=== PATIENT | female | born 1935 | race Two or more races ===

== ENCOUNTER 2024-03-25 16:49 | Inpatient (IN) | payer MEDICAID, MEDICARE ==
[~2024-03-25] VITALS: Ht 162.6 cm; Wt 62.1 kg
[2024-03-25] MEDS: VANCOMYCIN 1 GM in IV D5W 250 ML IV ONE (17:30)
[2024-03-25] MEDS: ACETAMINOPHEN ES 500 MG TABLET PO ONE (17:30)
[2024-03-25] MEDS: CEFTRIAXONE 1GM BAG (ER ONLY) 50 ML IV ONE (17:30)
[2024-03-25] MEDS: IV NS 0.9% 1,000 ML BAG IV ONE (17:30)
[2024-03-25] MEDS ORDERED: CEFTRIAXONE 1GM BAG (ER ONLY) 50 ML IV ONE (17:58)
[2024-03-25 18:33] LABS: BASOPHILS % (AUTO) 0.5 % (0.0-2.0); EOSINOPHILS # (AUTO) 0.3 K/uL (0.0-0.7); EOSINOPHILS % (AUTO) 4.5 % (0.0-6.0); HEMATOCRIT 39 % (33-45); HEMOGLOBIN 12.8 g/dL (11.5-14.8); LYMPHOCYTES # (AUTO) 1.7 K/uL (0.8-4.8); LYMPHOCYTES % (AUTO) 23.7 % (20.0-44.0); MEAN CORPUSCULAR HEMOGLOBIN 31 PG (26.0-33.0); MEAN CORPUSCULAR HGB CONC 33 g/dl (31.0-36.0); MEAN CORPUSCULAR VOLUME 93 fL (82-100); MONOCYTES # (AUTO) 0.6 K/uL (0.1-1.30); MONOCYTES % (AUTO) 8.3 % (2.0-12.0); NEUTROPHILS # (AUTO) 4.6 K/uL (1.8-8.9); PLATELET COUNT (AUTO) 283 K/uL (150-450); RED BLOOD CELL COUNT(AUTO) 4.19 MIL/uL (4.0-5.2); WHITE BLOOD COUNT (AUTO) 7.4 K/uL (4.3-11.0)
[2024-03-25 18:59] LABS: INR 0.97 (0.91-1.10)
[2024-03-25 19:01] LABS: PARTIAL THROMBOPLASTIN TIME 19.4 SEC (24.3-34.3)
[2024-03-25 19:02] LABS: LACTIC ACID 1.7 mmol/L (0.4-2.0)
[2024-03-25 19:11] LABS: ALANINE AMINOTRANSFERASE 17 U/L (12-78); ALBUMIN 3.3 g/dL (3.4-5.0); ALKALINE PHOSPHATASE 96 U/L (46-116); ASPARTATE AMINOTRANSFERASE 17 U/L (15-37); BILIRUBIN,DIRECT 0.1 mg/dL (0.0-0.2); BILIRUBIN,TOTAL 0.3 mg/dL (0.2-1.0); CALCIUM, SERUM 8.6 mg/dL (8.5-10.1); CARBON DIOXIDE 29 mmol/L (21-32); CHLORIDE 102 mmol/L (98-107); CREATININE 1.6 mg/dL (0.6-1.3); GLUCOSE 116 mg/dL (74-106); POTASSIUM 4.3 mmol/L (3.5-5.1); SODIUM SERUM 140 mmol/L (136-145); TOTAL PROTEIN, SERUM 6.8 g/dL (6.4-8.2); UREA NITROGEN, BLOOD 56 mg/dL (7-18)
[2024-03-25 19:27] LABS: APPEARANCE,URINE Clear (CLEAR); BILIRUBIN,URINE Negative (NEGATIVE); BLOOD, URINE Negative Ery/uL (NEGATIVE); COLOR,URINE YELLOW (YELLOW); KETONES,URINE Trace mg/dL (NEGATIVE); LEUKOCYTE ESTERASE ,URINE Negative (NEGATIVE); NITRITE, URINE Negative (NEGATIVE); PROTEIN,URINE Negative (NEGATIVE); UGLUCOSE Negative (NEGATIVE); UROBILINOGEN,URINE 0.2 EU/dL (0.2)
[2024-03-25] MEDS ORDERED: ACETAMINOPHEN ES 500 MG TABLET ONE (19:27)
[2024-03-25 19:40] LABS: ADD URINE CULTURE NO; BACTERIA,URINE None seen /HPF (None Seen); RBC,URINE NONE SEEN /HPF (0-2); WBC,URINE NONE SEEN /HPF (0-3)
[2024-03-25 19:41] LABS: SQUAMOUS EPITHELIAL CELL,UR None Seen /HPF (None Seen)
[2024-03-25] MEDS ORDERED: hydrALAZINE HCL IV 20 MG VIAL IV PRN (20:00)
[2024-03-25] MEDS ORDERED: MORPHINE SULFATE INJ 2 MG/ML DISP.SYRIN IV PRN (20:00)
[2024-03-25] MEDS ORDERED: ONDANSETRON HCL/PF 4 MG/2 ML VIAL IVP PRN (20:00)
[2024-03-25] MEDS ORDERED: Z GUARD REMEDY 4 OZ OINT TP PRN (20:00)
[2024-03-26] MEDS ORDERED: HEPARIN SODIUM, PORCINE 5000 UNITS/1 ML VIAL ONE (03:05)
[2024-03-26] MEDS: HEPARIN SODIUM, PORCINE 5000 UNITS/1 ML VIAL SQ SCH (03:05)
[2024-03-26] MEDS: IV NS 0.9% 1,000 ML IV SCH (05:30)
[2024-03-26 06:11] LABS: BASOPHILS % (AUTO) 0.4 % (0.0-2.0); EOSINOPHILS # (AUTO) 0.3 K/uL (0.0-0.7); EOSINOPHILS % (AUTO) 3.4 % (0.0-6.0); HEMATOCRIT 36 % (33-45); HEMOGLOBIN 12.1 g/dL (11.5-14.8); LYMPHOCYTES # (AUTO) 1.5 K/uL (0.8-4.8); LYMPHOCYTES % (AUTO) 18.5 % (20.0-44.0); MEAN CORPUSCULAR HEMOGLOBIN 31 PG (26.0-33.0); MEAN CORPUSCULAR HGB CONC 34 g/dl (31.0-36.0); MEAN CORPUSCULAR VOLUME 90 fL (82-100); MONOCYTES # (AUTO) 0.6 K/uL (0.1-1.30); MONOCYTES % (AUTO) 6.8 % (2.0-12.0); NEUTROPHILS # (AUTO) 5.9 K/uL (1.8-8.9); NEUTROPHILS % (AUTO) 70.9 % (43.0-81.0); PLATELET COUNT (AUTO) 280 K/uL (150-450); RED BLOOD CELL COUNT(AUTO) 3.96 MIL/uL (4.0-5.2); RED CELL DISTRIBUTION WIDTH 13.1 % (11.5-15.0); WHITE BLOOD COUNT (AUTO) 8.4 K/uL (4.3-11.0)
[2024-03-26 06:30] LABS: ALBUMIN 3.6 g/dL (3.4-5.0); BILIRUBIN,TOTAL 0.4 mg/dL (0.2-1.0); CALCIUM, SERUM 8.4 mg/dL (8.5-10.1); CREATININE 1.2 mg/dL (0.6-1.3); MAGNESIUM 2.5 mg/dL (1.8-2.4); PHOSPHORUS 2.6 mg/dL (2.5-4.9); POTASSIUM 3.9 mmol/L (3.5-5.1); TOTAL PROTEIN, SERUM 6.9 g/dL (6.4-8.2)
[2024-03-26] MEDS ORDERED: ESCI20TA PO (08:28)
[2024-03-26] MEDS ORDERED: MELO-107 PO (08:28)
[2024-03-26] MEDS ORDERED: VALP250S4 PO (08:28)
[2024-03-26] MEDS ORDERED: QUET100T PO (08:28)
[2024-03-26] MEDS ORDERED: TEMA15CA PO (08:28)
[2024-03-26] MEDS ORDERED: HYDR25TA4 PO (08:28)
[2024-03-26] MEDS: POLYETHYLENE GLYCOL 3350 17 GM POWD.PACK PO SCH (09:28)
[2024-03-26] MEDS: DOCUSATE SODIUM LIQ 100 MG/10 ML UDC PO SCH (09:28)
[2024-03-26 13:15] VITALS: BP 144/80; TEMP 97.7; O2SAT 99
[2024-03-26] MEDS: VALPROIC ACID 250 MG/5 ML UDC PO SCH (13:18)
[2024-03-26 20:00] VITALS: BP 150/80; TEMP 97.8; O2SAT 94
[2024-03-26 20:51] VITALS: BP 150/80; TEMP 97.8; O2SAT 94
[2024-03-26] MEDS: TEMAZEPAM 15 MG CAPSULE PO SCH (21:34)
[2024-03-26] MEDS: QUETIAPINE FUMARATE 100 MG TABLET PO SCH (21:34)
[2024-03-27 08:00] VITALS: BP 170/83; TEMP 97.7; O2SAT 100
[2024-03-27] MEDS: HYDROCHLOROTHIAZIDE 25 MG TABLET PO SCH (08:30)
[2024-03-27] MEDS: ESCITALOPRAM OXALATE (10 MG) 10 MG TABLET PO SCH (08:30)
[2024-03-27] MEDS: AMLODIPINE BESYLATE 5 MG TABLET PO SCH (12:39)
[2024-03-27 16:00] VITALS: BP 126/67; TEMP 97.9; O2SAT 95
[2024-03-27 20:00] VITALS: BP 153/93; TEMP 98.2; O2SAT 95
[2024-03-28 06:33] LABS: BASOPHILS % (AUTO) 0.6 % (0.0-2.0); CALCIUM, SERUM 9.4 mg/dL (8.5-10.1); CREATININE 0.8 mg/dL (0.6-1.3); EOSINOPHILS # (AUTO) 0.4 K/uL (0.0-0.7); EOSINOPHILS % (AUTO) 5.9 % (0.0-6.0); HEMATOCRIT 32 % (33-45); HEMOGLOBIN 10.8 g/dL (11.5-14.8); LYMPHOCYTES # (AUTO) 1.5 K/uL (0.8-4.8); LYMPHOCYTES % (AUTO) 24.1 % (20.0-44.0); MAGNESIUM 1.9 mg/dL (1.8-2.4); MEAN CORPUSCULAR HEMOGLOBIN 30 PG (26.0-33.0); MEAN CORPUSCULAR HGB CONC 33 g/dl (31.0-36.0); MEAN CORPUSCULAR VOLUME 90 fL (82-100); MONOCYTES # (AUTO) 0.5 K/uL (0.1-1.30); MONOCYTES % (AUTO) 7.7 % (2.0-12.0); NEUTROPHILS # (AUTO) 3.9 K/uL (1.8-8.9); NEUTROPHILS % (AUTO) 61.7 % (43.0-81.0); PHOSPHORUS 3.2 mg/dL (2.5-4.9); PLATELET COUNT (AUTO) 234 K/uL (150-450); POTASSIUM 3.9 mmol/L (3.5-5.1); RED BLOOD CELL COUNT(AUTO) 3.58 MIL/uL (4.0-5.2); RED CELL DISTRIBUTION WIDTH 13.6 % (11.5-15.0); WHITE BLOOD COUNT (AUTO) 6.3 K/uL (4.3-11.0)
[2024-03-28 07:00] VITALS: BP 151/70; TEMP 98.1; O2SAT 100
[2024-03-28 08:00] VITALS: BP 151/70; TEMP 98.1; O2SAT 100
[2024-03-28 08:52] VITALS: O2SAT 99
[2024-03-28] MEDS: IV NS 0.9% 1,000 ML IV PRN (11:37)
[2024-03-28 13:34] LABS: THYROID STIMULATING HORMONE 4.06 uIU/mL (0.358-3.74)
[2024-03-28 16:00] VITALS: BP 133/78; TEMP 98.2; O2SAT 98
[2024-03-28 20:00] VITALS: BP 150/99; TEMP 98.1; O2SAT 95
[2024-03-28] MEDS: ACETAMINOPHEN 325 MG TABLET PO PRN (21:22)
[2024-03-29 05:58] LABS: BASOPHILS # (AUTO) 0.1 K/uL (0.0-0.2); BASOPHILS % (AUTO) 0.8 % (0.0-2.0); EOSINOPHILS # (AUTO) 0.4 K/uL (0.0-0.7); EOSINOPHILS % (AUTO) 6.6 % (0.0-6.0); HEMATOCRIT 30 % (33-45); HEMOGLOBIN 10.3 g/dL (11.5-14.8); LYMPHOCYTES % (AUTO) 29.8 % (20.0-44.0); MEAN CORPUSCULAR HEMOGLOBIN 31 PG (26.0-33.0); MEAN CORPUSCULAR HGB CONC 34 g/dl (31.0-36.0); MEAN CORPUSCULAR VOLUME 91 fL (82-100); MONOCYTES # (AUTO) 0.7 K/uL (0.1-1.30); NEUTROPHILS # (AUTO) 3.5 K/uL (1.8-8.9); NEUTROPHILS % (AUTO) 52.8 % (43.0-81.0); PLATELET COUNT (AUTO) 205 K/uL (150-450); RED BLOOD CELL COUNT(AUTO) 3.34 MIL/uL (4.0-5.2); RED CELL DISTRIBUTION WIDTH 13.7 % (11.5-15.0); WHITE BLOOD COUNT (AUTO) 6.6 K/uL (4.3-11.0)
[2024-03-29 06:10] LABS: CALCIUM, SERUM 9.3 mg/dL (8.5-10.1); CREATININE 0.8 mg/dL (0.6-1.3); MAGNESIUM 2.1 mg/dL (1.8-2.4); PHOSPHORUS 3.3 mg/dL (2.5-4.9)
[2024-03-29 08:00] VITALS: BP 137/79; TEMP 98; TEMP 98.1; O2SAT 97
[2024-03-29] MEDS ORDERED: DOCU50LI PO (09:51)
[2024-03-29 16:00] VITALS: BP 151/60; TEMP 98.2; O2SAT 100
[2024-03-30 08:11] LABS: FOLIC ACID 13.8 ng/mL (>3.0)
[2024-04-01 20:07] LABS: VITAMIN B1 THIAMINE,WB 73.8 nmol/L (66.5-200.0)
== END 2024-03-29 19:15 | DRG 640 ==
LOC: ER 16:59 → TRANSITION 03-26 01:58 → MED 03-26 07:27
PROVIDERS: ADMIT Internal Medicine; ATTEND Internal Medicine
DX: E86.0 Dehydration (principal); N17.0 Acute kidney failure with tubular necrosis; E44.1 Mild protein-calorie malnutrition; G93.40 Encephalopathy, unspecified; Z20.822 Contact with and (suspected) exposure to COVID-19; F03.90 Unspecified dementia, unspecified severity, without behavioral disturbance, psychotic disturbance, mood disturbance, and anxiety; I10 Essential (primary) hypertension; M89.8X9 Other specified disorders of bone, unspecified site; E88.09 Other disorders of plasma-protein metabolism, not elsewhere classified
CPT/HCPCS: 36415; 70450-TC; 71045-TC; 80048-TC; 80053-TC; 80076-TC; 81001; 82607-TC; 83605-TC; 83735-TC; 83921; 84100-TC; 84425; 84443-TC; 84484-TC; 85025-TC; 85730-TC; 87040-TC; 92526; 92611-TC; 97110-TC; 97116-TC; 97530-TC; A4223; G0378; J0696; J1644; J3370; J7030; J7040; J7050; J7060